=== PATIENT | male | born 1965 | race Caucasian/White ===

== ENCOUNTER 2019-03-12 22:17 | Emergency (ER) | payer SELFPAY ==
[~2019-03-12] VITALS: Ht 190.5 cm; Wt 74.8 kg
[2019-03-12] MEDS ORDERED: SODIUM CHLORIDE 0.9% 1,000 ML IVB ONE (22:42)
[2019-03-12 23:04] LABS: Eosinophils % (auto) 2.7 % (0.0-7.0); Lymphocytes # (auto) 2.8 uL; Monocytes # (auto) 0.5 uL; Monocytes % (auto) 9.6 % (0.0-12.0); White Blood Cell 5.6 10^3/uL (4.4-10.8)
[2019-03-12 23:05] LABS: Basophils # (auto) 0.1 uL; Basophils % (auto) 2.1 % (0.0-2.0); Eosinophils # (auto) 0.1 uL; Hematocrit 43.1 % (41.0-53.0); Hemoglobin 14.8 g/dL (13.5-17.5); Mean Corpuscular Hemoglobin 36.3 pg (28.0-32.0); Mean Corpuscular Hgb Conc. 34.4 g/dL (32.0-36.0); Mean Corpuscular Volume 105.7 fL (80.0-100.0); Neutrophils % (auto) 35.6 % (37.0-80.0); Nucleated Red Blood Cells % 0.3 %; Platelet Count (auto) 226 10^3/uL (140-450); Red Blood Cells 4.08 10^6/uL (4.5-5.90); Red Cell Distribution Width 14.2 % (11.8-14.3)
[2019-03-12 23:22] LABS: Acetaminophen 9.5 ug/mL (10-30); Albumin 3.4 g/dL (3.4-5.0); Calcium 8.1 mg/dL (8.5-10.1); Potassium 3.8 mmol/L (3.5-5.1); Salicylate 4.8 mg/dL (2.8-20.0)
[2019-03-12 23:25] LABS: Bilirubin, Total 0.1 mg/dL (0.2-1.0); Total Protein 6.5 g/dL (6.4-8.2)
[2019-03-12 23:57] LABS: Urine Bacteria NONE SEEN /hpf (None Seen); Urine Blood Negative /uL (Negative); Urine Mucus FEW (None Seen); Urine WBC <1 /hpf (0 - 3)
[2019-03-13 00:12] LABS: Amphetamine Screen, Urine NEGATIVE (NEGATIVE); Barbiturate Scree,Urine POSITIVE (NEGATIVE); Benzodiazephine Screen, Urine NEGATIVE (NEGATIVE); Cannabinoid Screen, Urine POSITIVE (NEGATIVE); Cocaine Screen, Urine NEGATIVE (NEGATIVE); Phencyclidine Screen, Urine NEGATIVE (NEGATIVE)
[2019-03-13 00:19] LABS: Opiate Scree,Urine NEGATIVE (NEGATIVE)
[2019-03-13 02:32] VITALS: BP 138/88
== END 2019-03-13 02:21 | disposition home or self-care (01) ==
LOC: EDBD 22:17 → ER 22:20
DX: M54.9 Dorsalgia, unspecified (principal); F10.920 Alcohol use, unspecified with intoxication, uncomplicated; F12.10 Cannabis abuse, uncomplicated; F17.210 Nicotine dependence, cigarettes, uncomplicated; Y90.0 Blood alcohol level of less than 20 mg/100 ml
CPT/HCPCS: 36415; 80053; 80307; 80320; 80329; 81001; 85025; 93005; 94761